=== PATIENT | female | born 1985 | race Caucasian/White ===

== ENCOUNTER 2018-06-26 08:04 | Emergency (ER) | payer MEDICAID ==
[~2018-06-26] VITALS: Ht 172.7 cm; Wt 54.5 kg
[~2018-06-26 08:04] MED LIST: PHENERGAN25 M1 PO; PRENAVITE1 TAB PO; PROTONIX20 MG PO
[2018-06-26 08:10] VITALS: Ht 172.7 cm; Wt 54.5 kg
[2018-06-26 08:41] LABS: BASOPHILS 0.3 % (0-2); EOSINOPHILS 0.4 % (0-7); HEMOGLOBIN 12.6 g/dL (12-16); IMMATURE GRANULOCYTES 0.1 % (0-5); LYMPHOCYTES 32.7 % (15-50); MCH 30.7 pg (26.0-34.0); MCHC 34.1 g/dL (31.0-37.0); MCV 90.2 fL (80.0-100.0); MEAN PLATELET VOLUME 9.5 fL (7.4-10.4); MONOCYTES 7.3 % (2-11); NEUTROPHILS 59.2 % (40-80); PLATELET COUNT 210 10x3/uL (130-400); WBC 6.7 10x3/uL (4.8-10.8)
[2018-06-26 09:00] LABS: ALBUMIN 4.2 g/dL (3.4-5.0); ALKALINE PHOSPHATASE 52 U/L (46-116); ALT (SGPT) 33 U/L (10-68); BILIRUBIN - TOTAL 0.94 mg/dL (0.2-1.3); CALC OSMOLALITY 280 mosm/kg (275-300); CALCIUM 8.4 mg/dL (8.5-10.1); CARBON DIOXIDE 25.9 mmol/L (21.0-32.0); CHLORIDE - SERUM 105 mmol/L (98-107); CREATININE - SERUM 0.8 mg/dL (0.6-1.3); GLUCOSE 94 mg/dL (74-106); POTASSIUM - SERUM 3.7 mmol/L (3.5-5.1); SODIUM 141 mmol/L (136-145); UREA NITROGEN 13 mg/dL (7-18); eGFR NON AFRICAN AMERICAN 89 mL/min (90-120)
[2018-06-26 09:04] LABS: AMYLASE - SERUM 53 U/L (25-115); LIPASE 107 U/L (73-393); TROPONIN-I < 0.017 ng/mL (0.000-0.060)
[2018-06-26 09:43] LABS: APPEARANCE CLEAR (CLEAR); BILIRUBIN NEGATIVE (NEGATIVE); COLOR YELLOW (YELLOW); GLUCOSE NEGATIVE (NEGATIVE); KETONE NEGATIVE (NEGATIVE); NITRITE NEGATIVE (NEGATIVE); PROTEIN NEGATIVE (NEGATIVE); SPECIFIC GRAVITY 1.015 (1.005-1.020); UROBILINOGEN NORMAL (NORMAL)
[2018-06-26 09:44] LABS: BACTERIA MODERATE /hpf (NONE SEEN); EPITHELIAL CELLS 0-5 /hpf (0-5); MUCUS >1+ /lpf (NONE SEEN); WHITE CELLS - URINE OCC /hpf (0-5)
[2018-06-26 11:37] LABS: HCG URINE NEGATIVE (NEGATIVE)
[2018-06-26] MEDS ORDERED: CYCLOBENZAPRINE10 MG PO (13:15)
[2018-06-26] MEDS ORDERED: IBUPROFEN800 MG PO (13:15)
[2018-06-26 13:30] VITALS: BP 111/80
== END 2018-06-26 13:25 | disposition home or self-care (01) ==
LOC: D.ER 08:04
PROVIDERS: Family Medicine
DX: S70.12XA Contusion of left thigh, initial encounter (principal); W18.30XA Fall on same level, unspecified, initial encounter; Y93.89 Activity, other specified; Y92.89 Other specified places as the place of occurrence of the external cause; M79.652 Pain in left thigh